=== PATIENT | female | born 2000 | race Two or more races ===

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

== ENCOUNTER 2018-01-19 12:50 | Emergency (ER) | payer SELFPAY ==
[~2018-01-19] VITALS: Ht 162.6 cm; Wt 57.6 kg
[2018-01-19 13:00] VITALS: BP 135/78
--- NOTE | 2018-01-19 13:00 | NUR ---
THE PATIENT WAS SEEN BY RADHA MCKEON
--- NOTE | 2018-01-19 13:15 | NUR ---
Patient eloped from facility. ER MD notified.
== END 2018-01-19 13:25 | disposition left against medical advice (07) ==
LOC: ER 12:52
DX: Z53.21 Procedure and treatment not carried out due to patient leaving prior to being seen by health care provider (principal)
CPT/HCPCS: A4606; Z7610

== ENCOUNTER 2018-01-19 15:39 | Emergency (ER) | payer SELFPAY ==
[~2018-01-19] VITALS: Ht 157.5 cm; Wt 55.3 kg
[2018-01-19 15:40] VITALS: BP 126/75
[2018-01-19] MEDS ORDERED: IV NS 0.9% 1,000 ML BAG IV ONE (16:00)
[2018-01-19] MEDS ORDERED: LORAZEPAM INJ 2 MG/ML VIAL IVP ONE (16:00)
--- NOTE | 2018-01-19 16:00 | NUR ---
RADHA MCKEON AT , CONTRACTED WITH THE PT SHE WILL NOT BE RESTRAINED IF SHE STAYED AND COOPERATE.
[2018-01-19] MEDS ORDERED: LORAZEPAM INJ 2 MG/ML VIAL ONE (16:04)
--- NOTE | 2018-01-19 16:15 | NUR ---
PT ASKED TO USE THE RESTROOM, BUT DIDN'T COME BACK TO HER ROOM AND ELOPED.
== END 2018-01-19 17:01 | disposition left against medical advice (07) ==
LOC: ER 15:41
DX: R41.82 Altered mental status, unspecified (principal); F19.10 Other psychoactive substance abuse, uncomplicated
CPT/HCPCS: 99284; A4606; J7030; Z7610; J2060

== ENCOUNTER 2020-01-23 18:33 | Emergency (ER) | payer MEDICAID ==
[~2020-01-23] VITALS: Ht 157.5 cm; Wt 49.9 kg
--- NOTE | 2020-01-23 19:00 | NUR ---
PT [facility] C/O DIFFUSE ABDOMINAL PAIN W/ NAUSEA SINCE YESTERDAY BUT GOT WORST TODAY. DENIES DIARRHEA, PT STATES HX OF "ULCERS." PLACED ON MONITOR. AWAITING MD GEE.
--- NOTE | 2020-01-23 19:09 | NUR ---
DR REA AT BEDSIDE FOR EVAL.
--- NOTE | 2020-01-23 19:15 | NUR ---
[employer] OPER[employer] AT BEDSIDE FOR BLOOD DRAW.
[2020-01-23 19:20] LABS: BASOPHILS % (AUTO) 0.6 % (0.0-2.0); EOSINOPHILS % (AUTO) 2.3 % (0.0-6.0); HEMATOCRIT 39 % (33-45); HEMOGLOBIN 12.7 g/dL (11.5-14.8); LYMPHOCYTES # (AUTO) 1.9 /CMM (0.8-4.8); LYMPHOCYTES % (AUTO) 35.3 % (20.0-44.0); MEAN CORPUSCULAR HGB CONC 33 g/dl (31.0-36.0); MEAN CORPUSCULAR VOLUME 84 fL (82-100); MONOCYTES # (AUTO) 0.4 /CMM (0.1-1.30); MONOCYTES % (AUTO) 8.3 % (2.0-12.0); NEUTROPHILS # (AUTO) 2.9 /CMM (1.8-8.9); NEUTROPHILS % (AUTO) 53.5 % (43.0-81.0); PLATELET COUNT (AUTO) 265 /CMM (150-450); RED BLOOD CELL COUNT(AUTO) 4.56 MIL/uL (4.0-5.2); WHITE BLOOD COUNT (AUTO) 5.3 K/uL (4.3-11.0)
[2020-01-23] MEDS ORDERED: IV NS 0.9% 1,000 ML IV ONE (19:30)
[2020-01-23 19:47] LABS: ALBUMIN 3.6 g/dL (3.4-5.0); BILIRUBIN,TOTAL 0.1 mg/dL (0.2-1.0); CALCIUM, SERUM 8.5 mg/dL (8.5-10.1); CREATININE 0.7 mg/dL (0.6-1.3); POTASSIUM 3.8 mmol/L (3.5-5.1); TOTAL PROTEIN, SERUM 7.1 g/dL (6.4-8.2)
--- NOTE | 2020-01-23 19:54 | NUR ---
REPORT TO STAFF CERTIFIED NURSE MIDWIFE NURSE RN FOR JUDIT.
[2020-01-23 20:17] LABS: ALCOHOL, BLOOD 152 mg/dL (0-0)
[2020-01-23] MEDS ORDERED: PANTOPRAZOLE 40 MG VIAL IV ONE (21:00)
[2020-01-23] MEDS ORDERED: KETOROLAC TROMETHAMINE INJ 30 MG/ML VIAL IV ONE (21:00)
[2020-01-23 21:22] LABS: APPEARANCE,URINE Clear (CLEAR); BILIRUBIN,URINE Negative (NEGATIVE); BLOOD, URINE Negative Ery/uL (NEGATIVE); COLOR,URINE Yellow (YELLOW); KETONES,URINE Trace (NEGATIVE); LEUKOCYTE ESTERASE ,URINE Negative (NEGATIVE); NITRITE, URINE Negative (NEGATIVE); PH,URINE 5.5 (5.0-8.0); PROTEIN,URINE Negative (NEGATIVE); UGLUCOSE Negative (NEGATIVE); UROBILINOGEN,URINE 0.2 EU/dL (0.2)
[2020-01-23 21:23] LABS: BACTERIA,URINE Rare /HPF (None Seen); RBC,URINE 0-2 /HPF (0-2); SQUAMOUS EPITHELIAL CELL,UR Few /HPF (None Seen); WBC,URINE 0-2 /HPF (0-3)
[2020-01-23 22:00] VITALS: BP 102/55
--- NOTE | 2020-01-23 22:57 | NUR ---
Patient given written and verbal discharge instructions. Patient verbalizes understanding of instructions. Patient is ambulatory with steady gait. Refuses offer of nursing home placement. Patient given list of available shelters in surrounding area.
== END 2020-01-23 23:08 | disposition home or self-care (01) ==
LOC: ER 18:35
DX: R10.13 Epigastric pain (principal); F10.10 Alcohol abuse, uncomplicated; E86.0 Dehydration; Y90.6 Blood alcohol level of 120-199 mg/100 ml
CPT/HCPCS: 36415; 80048; 80076; 80305; 80307; 81001; 83690; 84702; 85025; 96360; 99283; J7030; 81000-TC; G0480